=== PATIENT | male | born 2000 | race Caucasian/White ===

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

== ENCOUNTER 2021-02-01 16:34 | Emergency (ER) | payer MEDICAID ==
[~2021-02-01] VITALS: Ht 172.7 cm; Wt 87.1 kg
[2021-02-01 17:08] VITALS: BP 128/78
--- NOTE | 2021-02-01 17:12 | NUR ---
Diane nava in [facility] - 02/01/21 at 1714 by [email or web address] PT AMBULATED TO BED 3
--- NOTE | 2021-02-01 17:14 | NUR ---
PT AMB TO [facility]
[2021-02-01] MEDS ORDERED: NACL 0.9% 1,000 ML IV ONE ×2 (17:35→19:10)
--- NOTE | 2021-02-01 17:45 | NUR ---
20 Y/O MALE C/O MID CHEST PAIN XTODAY. PT RATES PAIN 4/10 THAT HE DESCRIBES SHARP NONRADIATING. PT STATES PAIN IS WORSE WHEN HE TAKES A DEEP BREATH. PT DENIES SOB. DENIES N/V. PT STATES THAT HE HAS INCREASED STRESS AT HOME AND FEELS ANXIOUS. PT A/O X4 WITH EVEN AND UNLABORED RESPIRATIONS PMH:DENIES NKDA
--- NOTE | 2021-02-01 17:58 | NUR ---
PATIENT REFUSES IV THERAPY. OMER BOBBY MADE AWARE
[2021-02-01 18:30] LABS: BARBITURATE, URINE NEGATIVE ng/ml (NEG <=200); BENZODIAZEPINE, URINE NEGATIVE ng/mL (NEG <=200); CANNABINOID, URINE NEGATIVE ng/mL (NEG <=50); COCAINE, URINE NEGATIVE ng/mL (NEG <=300); OPIATE, URINE NEGATIVE ng/mL (NEG <=2000); PHENCYCLIDINE SCREEN,URINE NEGATIVE ng/mL (NEG <=25)
--- NOTE | 2021-02-01 19:24 | NUR ---
REPORT GIVEN TO JAMI RN, TRANSFER OF CARE AT THIS TIME
--- NOTE | 2021-02-01 19:24 | NUR ---
RECEIVED REPORT FROM SANGEETHA ROBLES FOR CONTINUITY OF CARE
--- NOTE | 2021-02-01 19:30 | NUR ---
Patient appears to be resting comfortably in bed- high fowlers, eyes open and speaking on the phone. Vital Signs within normal limits. Respirations even and unlabored. Patient attached to fluids running a bolus. Patient currently denying pain. AAOx4. Safety measures are in place, patient on the shipping & receiving lead, and will continue to monitor patient.
[2021-02-01] MEDS ORDERED: HYDR25CA1 PO (20:16)
[2021-02-01 20:23] VITALS: BP 135/99
--- NOTE | 2021-02-01 20:23 | NUR ---
Patient discharged with v/s stable. Written and verbal after care instructions given and explained. Patient alert, oriented and verbalized understanding of instructions. Ambulatory with steady gait. All questions addressed prior to discharge. ID band removed. Patient advised to follow up with PMD. Rx of VISTARIL given. Patient educated on indication of medication including possible reaction and side effects. Opportunity to ask questions provided and answered.
== END 2021-02-01 20:23 | disposition home or self-care (01) ==
LOC: MED 16:34
DX: F41.9 Anxiety disorder, unspecified (principal); E86.0 Dehydration; R03.0 Elevated blood-pressure reading, without diagnosis of hypertension
CPT/HCPCS: 71045; 80305; 93005; 96360; 99285; J7030